=== PATIENT | female | born 1940 | race Caucasian/White ===

== ENCOUNTER → 2017-07-04 | Outpatient (CLI) | payer OTHER | LOC: GIMAGING 15:29 | PROVIDERS: ATTEND Family Medicine | DX: M43.16 Spondylolisthesis, lumbar region (principal); E03.9 Hypothyroidism, unspecified | CPT/HCPCS: 72100-PO ==

== ENCOUNTER → 2018-01-21 | Outpatient (CLI) | payer OTHER | LOC: FIMAGING 10:34 | PROVIDERS: ATTEND Physician Assistant Surgical | DX: M54.42 Lumbago with sciatica, left side (principal); Z98.1 Arthrodesis status ==

== ENCOUNTER → 2018-03-03 | Outpatient (CLI) | payer OTHER | LOC: FIMAGING 12:38 | PROVIDERS: ATTEND Physician Assistant Surgical | DX: M43.16 Spondylolisthesis, lumbar region (principal); M54.42 Lumbago with sciatica, left side; R53.1 Weakness; Z98.1 Arthrodesis status ==

== ENCOUNTER → 2018-05-30 | Outpatient (CLI) | payer OTHER | LOC: FIMAGING 13:35 | PROVIDERS: ATTEND Physician Assistant Surgical | DX: M43.16 Spondylolisthesis, lumbar region (principal); M54.42 Lumbago with sciatica, left side; Z98.1 Arthrodesis status ==

== ENCOUNTER → 2018-07-01 | Outpatient (CLI) | payer OTHER | LOC: BHFA 11:30 | PROVIDERS: ATTEND Internal Medicine Cardiovascular Disease | DX: I48.91 Unspecified atrial fibrillation (principal) ==